=== PATIENT | male | born 1990 | race Caucasian/White ===

== ENCOUNTER 2018-05-15 08:37 | Emergency (ER) | payer MEDICAID ==
[~2018-05-15] VITALS: Ht 182.9 cm; Wt 73.6 kg
[2018-05-15 08:40] VITALS: BP 139/83
== END 2018-05-15 09:14 | disposition home or self-care (01) ==
LOC: ED 09:10
DX: L30.9 Dermatitis, unspecified (principal)
CPT/HCPCS: 99283

== ENCOUNTER 2019-05-30 10:59 | Emergency (ER) | payer MEDICAID | END 2019-05-30 11:11 | disposition left against medical advice (07) | LOC: ED 11:00 | DX: Z53.21 Procedure and treatment not carried out due to patient leaving prior to being seen by health care provider (principal) ==